=== PATIENT | female | born 1955 | race Two or more races ===

== ENCOUNTER 2018-09-15 11:50 | Emergency (ER) | payer MEDICAID ==
[~2018-09-15] VITALS: Ht 165.1 cm; Wt 63.5 kg
--- NOTE | 2018-09-15 12:15 | NUR ---
patient presented tot he ER c/o Pain and swelling to L hand s/p GLF. On room air, breathing evenly and unlabored. Kept comfortable, will continue to monitor accordingly.
--- NOTE | 2018-09-15 12:47 | NUR ---
x-ray tech at bedside.
[2018-09-15 13:58] VITALS: BP 134/77
--- NOTE | 2018-09-15 14:00 | NUR ---
Patient discharged to home in stable condition. Written and verbal after care instructions given. Patient verbalizes understanding of instruction.
== END 2018-09-15 14:00 | disposition home or self-care (01) ==
LOC: ER 11:50
DX: S62.317A Displaced fracture of base of fifth metacarpal bone, left hand, initial encounter for closed fracture (principal); S80.212A Abrasion, left knee, initial encounter; S80.211A Abrasion, right knee, initial encounter; W01.0XXA Fall on same level from slipping, tripping and stumbling without subsequent striking against object, initial encounter; Y93.89 Activity, other specified; Y92.89 Other specified places as the place of occurrence of the external cause; Y99.8 Other external cause status
CPT/HCPCS: 73110; 73130-TC

== ENCOUNTER → 2020-01-11 | Emergency (ER) | payer MEDICARE, MEDICAID ==
[~2020-01-11] VITALS: Ht 157.5 cm; Wt 56.7 kg
[2020-01-11 11:12] VITALS: BP 152/97
--- NOTE | 2020-01-11 11:59 | NUR ---
Steve wrap applied to affected area as ordered Patient discharged to home in stable condition. Written and verbal after care instructions given. Patient verbalizes understanding of instruction.
== END | disposition home or self-care (01) ==
LOC: ER 11:18
DX: S90.32XA Contusion of left foot, initial encounter (principal); I10 Essential (primary) hypertension; X58.XXXA Exposure to other specified factors, initial encounter; Y93.89 Activity, other specified; Y92.89 Other specified places as the place of occurrence of the external cause; Y99.8 Other external cause status
CPT/HCPCS: 73630-TC